=== PATIENT | female | born 1965 | race American Indian/Alaskan Native ===

== ENCOUNTER 2018-03-06 20:19 | Emergency (ER) | payer BC ==
[2018-03-06 21:14] VITALS: BP 152/92; PULSE 85; RESP 18; TEMP 98.4; O2SAT 100
[2018-03-06] MEDS ORDERED: Phenylephrine 0.25% NASAL Spray (15ML) NAS STA (21:59)
[2018-03-06] MEDS ORDERED: Phenylephrine 0.5% Nasal Spray NAS ONE (22:05)
--- NOTE | 2018-03-06 22:35 | ED PDOC ---
HPI: CCC, URI, Sore Throat Chief Complaint (Provider): Nose bleed - Right History Per: Patient History/Exam Limitations: no limitations Have you had recent travel within the past 21 days to any of the following countries: [place], [place], [place] or [place]?: No Onset/Duration Of Symptoms: Days Current Symptoms Are (Timing): Still Present Associated Symptoms: denies: Chills, Sore Throat Additional Complaint(s): 53 yo female with no medical problems presents for evaluation of left nosebleed. PT states it began about 7 and stopped without pressure. PT states 2 days ago she had the area cauterized by Dr. Kaye. Pt did not contact him. No active bleeding. <Tiki Portillo - Last Filed: 03/06/18 22:33> <Kate Montenegro - Last Filed: 03/07/18 16:16> Time Seen by Provider: 03/06/18 21:13 Chief Complaint (Nursing): ENT Problem Past Medical History Vital Signs: Last Vital Signs Temp 98.4 F 03/06/18 21:12 Pulse 85 03/06/18 21:12 Resp 18 03/06/18 21:12 BP 152/92 H 03/06/18 21:12 Pulse Ox 100 03/06/18 21:12 - Medical History PMH: Asthma, Gastritis - Family History Family History: States: Unknown Family Hx - Immunization History Hx Tetanus Toxoid Vaccination: No Hx Influenza Vaccination: No Hx Pneumococcal Vaccination: No <Tiki Portillo - Last Filed: 03/06/18 22:33> Vital Signs: Last Vital Signs Temp 98.4 F 03/06/18 21:12 Pulse 85 03/06/18 21:12 Resp 18 03/06/18 21:12 BP 152/92 H 03/06/18 21:12 Pulse Ox 100 03/06/18 22:40 <Kate Montenegro - Last Filed: 03/07/18 16:16> - Home Medications Home Medications: Ambulatory Orders Medication Instructions Recorded Azithromycin 250 mg PO DAILY 07/01/13 Ibuprofen [Motrin] 600 mg PO Q6 PRN #25 tab 07/01/13 Montelukast 10 mg PO 07/01/13 Prednisolone 10 mg PO 07/01/13 Promethazine Dm 15 mg/5 ml-6.25 1 tsp PO BID 07/01/13 mg/5 ml 118 M Albuterol 1 puff INH PRN PRN 11/08/13 RX: Albuterol Sulfate [Albuterol 2 puff INH Q6H PRN 01/13/15 Sulfate Hfa] RX: Dexlansoprazole [Dexilant] 60 mg PO DAILY 01/13/15 RX: Montelukast [Singulair] 10 mg PO DAILY 01/13/15 Ondansetron ODT [Zofran ODT] 4 mg PO Q6 #20 odt 10/30/15 - Allergies Allergies/Adverse Reactions: Allergies Allergy/AdvReac Type Severity Reaction Status Date / Time No Known Allergies Allergy Verified 03/06/18 21:12 - ECG O2 Sat by Pulse Oximetry: 100 <Tiki Portillo - Last Filed: 03/06/18 22:33> Medical Decision Making Medical Decision Making: Discussed with Dr. Kaye. Would like anterior packing and f.u with him tomorrow. Pt given neosinephrine. Pt does not want packing. Discussed if nose begins to bleed return for packing. Sleep with head up. <Tiki Portillo - Last Filed: 03/06/18 22:33> Disposition - Patient ED Disposition Is Patient to be Admitted: No Counseled Patient/Family Regarding: Diagnosis, Need For Followup - Disposition Disposition: Routine/Home Disposition Time: 22:33 <Tiki Portillo - Last Filed: 03/06/18 22:33> <Kate Montenegro - Last Filed: 03/07/18 16:16> - Clinical Impression Clinical Impression: Epistaxis - Disposition Referrals: Eleazar Kaye MD [Staff Provider] - Condition: STABLE Instructions: Nosebleeds (DC) Forms: [employer] ([place]) - [place] / [employer] / Resident Statement MD/DO has reviewed & agrees with the documentation as recorded. <Kate Montenegro - Last Filed: 03/07/18 16:16>
== END 2018-03-06 22:43 | disposition home or self-care (01) ==
LOC: H.ER 20:19
DX: R04.0 Epistaxis (principal)